=== PATIENT | female | born 1955 | race Hispanic/Latino ===

== ENCOUNTER 2019-06-02 05:10 | Observation (INO) | payer MEDICARE, OTHER ==
[2019-06-02] VITALS (7 sets, daily range): BP systolic 140–204; BP diastolic 63–91
[~2019-06-02] VITALS: Ht 152.4 cm; Wt 54.1 kg
--- OUTSIDE RECORDS SUMMARY | 2019-06-02 05:13 | XMS REPORT ---
[facility] Address Unknown Phone Unavailable Care Team Providers Care Auto Striper Name Role Phone Unavailable Unavailable Problems This patient has no known problems. Allergies, Adverse Reactions, Alerts This patient has no known allergies or adverse reactions. Medications This patient has no known medications. Encounters Start Date/Time End Date/Time Encounter Type Admission Type Attending [facility] Facility Care Department Encounter ID 2017-10-28 00:00:00 2017-10-28 00:00:00 Outpatient [facility] [id number] 2017-07-18 00:00:00 2017-07-18 00:00:00 Outpatient [facility] [id number] 2017-07-18 00:00:00 2017-07-18 00:00:00 Outpatient [facility] [id number] 2017-06-28 00:00:00 2017-06-28 00:00:00 Outpatient [facility] [id number] 2017-06-28 00:00:00 2017-06-28 00:00:00 Outpatient [facility] [id number] 2017-06-17 00:00:00 2017-06-17 00:00:00 Outpatient [facility] [id number] 2017-06-17 00:00:00 2017-06-17 00:00:00 Outpatient [facility] [id number] 2017-06-17 00:00:00 2017-06-17 00:00:00 Outpatient [facility] [id number] 2017-06-07 10:02:32 2017-06-07 10:02:32 Outpatient [facility] [id number] 2017-06-07 10:00:41 2017-06-07 10:00:41 Outpatient [facility] [id number] 2017-05-30 12:37:49 2017-05-30 12:37:49 Outpatient [facility] [id number] 2017-05-30 10:21:32 2017-05-30 10:21:32 Outpatient [facility] [id number] 2017-05-23 14:21:16 2017-05-23 14:21:16 Outpatient [facility] [id number] 2017-05-23 13:23:30 2017-05-23 13:23:30 Outpatient [facility] [id number] 2017-05-23 00:00:00 2017-05-23 00:00:00 Outpatient [facility] [id number] 2017-04-24 08:03:54 2017-04-24 08:03:54 Outpatient [facility] [id number] 2017-04-22 14:06:43 2017-04-22 14:06:43 Outpatient [facility] [id number] 2017-04-04 11:48:12 2017-04-04 11:48:12 Outpatient [facility] [id number] 2017-04-04 08:08:20 2017-04-04 08:08:20 Outpatient [facility] [id number] 2017-04-04 03:25:26 2017-04-04 03:25:26 Outpatient [facility] [id number] 2017-04-03 23:46:53 2017-04-03 23:46:53 Emergency [facility] [id number] 2017-04-02 08:32:43 2017-04-02 08:32:43 Outpatient [facility] [id number]
[2019-06-02 05:42] LABS: BASOPHILS % 0.5 % (0.0-1.0); EOSINOPHILS # (AUTO) 0.4 (0.0-0.4); EOSINOPHILS % 5.2 % (0.0-6.0); HEMATOCRIT 30.7 % (34.2-44.1); HEMOGLOBIN 10.1 g/dL (12.0-16.0); LYMPHOCYTES # (AUTO) 1.1 (1.0-3.2); MEAN CORPUSCULAR HEMOGLOBIN 29.9 pg (28-32); MEAN CORPUSCULAR HGB CONC 32.9 g/dL (31-35); MEAN CORPUSCULAR VOLUME 90.8 fL (81-99); MONOCYTES # (AUTO) 0.5 (0.2-0.8); MONOCYTES % 6.3 % (4.4-11.3); NEUTROPHILS # (AUTO) 5.3 (2.1-6.9); NEUTROPHILS % 72.9 % (38.7-80.0); PLATELET COUNT 137 x10e3/uL (140-360); RED BLOOD COUNT 3.38 x10e6/uL (3.6-5.1); RED CELL DISTRIBUTION WIDTH 16.1 % (11.7-14.4)
[2019-06-02 05:58] LABS: ALBUMIN 4.2 g/dL (3.5-5.0); ALBUMIN/GLOBULIN RATIO 1.2 (0.8-2.0); ANION GAP 19.9 mmol/L (8-16); CALCIUM 9.3 mg/dL (8.4-10.2); CREATININE, SERUM 11.02 mg/dL (0.57-1.11); POTASSIUM 4.9 mmol/L (3.5-5.1)
[2019-06-02] MEDS ORDERED: CARVEDILOL12.5 MG PO (06:45)
[2019-06-02] MEDS ORDERED: DEXTROSE 50% SYRINGE 50 ML IV PRN (06:45)
[2019-06-02] MEDS ORDERED: HYDRALAZINE HCL 20 MG/ML VIAL IV PRN (06:45)
[2019-06-02] MEDS ORDERED: NIFEDIPINE ER30 M1 PO (06:45)
[2019-06-02] MEDS ORDERED: DIALYVITE 8000.8 M1 PO (06:45)
[2019-06-02] MEDS ORDERED: ONDANSETRON HCL INJ 2MG/ML 2ML 2 MG/ML VIAL IV PRN (06:45)
[2019-06-02] MEDS ORDERED: ATORVASTATIN CA20 MG PO (06:45)
[2019-06-02] MEDS ORDERED: LEVEMIR100 UNIT/1 SQ (06:45)
--- NOTE | 2019-06-02 07:24 | Diagnostic Imaging Report ---
A single frontal view of the chest. HISTORY: Shortness of breath COMPARISON: None available. DISCUSSION: Portable technique, limits sensitivity of the exam. Overlying monitoring leads. Tubes/Lines: None Lungs and pleura: Low lung volumes result in bibasilar vascular crowding, accentuation of the pulmonary interstitial markings, central pulmonary vasculature, and the cardiac silhouette. Allowing for these limitations, the findings are as follows: Diffusely increased pulmonary interstitial markings with areas of more confluent patchy airspace opacities. Moderate right and small left pleural effusions with adjacent atelectasis. Heart and mediastinum: The cardiac silhouette and central pulmonary vasculature appear(s) partially obscured, but enlarged. Bones and soft tissues: Appear unremarkable, given this limited exam. IMPRESSION: Findings compatible with volume overload resulting in central pulmonary vascular congestion, moderate pulmonary edema, right greater than left pleural effusions with adjacent atelectasis. Signed by: Dr. Shashank Michaels D.O., M.M.M. on 06/02/2019 7:20 AM
[2019-06-02] MEDS: INSULIN REGULAR, HUMAN 100 UNIT/1 ML 3ML VIAL SQ SCH ×4 (08:39→21:16)
--- NOTE | 2019-06-02 08:57 | NUR ---
H&P cc: sob HPI: 64yoF, PCP , developed sob and fluid overload. PMH: ESRD on HD, HTN, HLD, DM2 PSHx: HD access Allergies; see emr FH/SH; no cigs; no illicits meds; see MAR ROS; no f/c/s/N/V/D/SEGOVIA/vision changes/skin changes/dizziness v/s revd PE: tired appearing anicteric ns1s2 reduced BS; crackles at bases soft nt no e/t skin dry flat affect a&ox3; arauz labs/med revd A/P: Pulmonary edema B/L pleural effusions DM2 ESRD on HD HLD HTN PLAN HD Lasix BID restart home meds scd dispo: re-eval after HD Joshua Kramer MD, PhD.
[2019-06-02 09:16] LABS: CHOL/HDL RATIO 1.9 (3.0-3.6)
[2019-06-02] MEDS ORDERED: LIDOCAINE HCL 2% JELLY 5 ML TUBE TOP ONE (09:45)
[2019-06-02] MEDS: FUROSEMIDE INJ 10 MG/ML 4 ML VIAL IV SCH ×2 (10:00→21:15)
[2019-06-02] MEDS: INSULIN GLARGINE 100 UNITS/ML VIAL SQ SCH (10:00)
[2019-06-02] MEDS ORDERED: SODIUM CHLORIDE 0.9% 1000ML 2,000 ML ONE (10:34)
[2019-06-02] MEDS: NIFEDIPINE CR 30 MG TAB PO SCH (12:53)
[2019-06-02] MEDS: CARVEDILOL 12.5 MG TAB PO SCH ×2 (12:54→17:00)
--- NOTE | 2019-06-02 14:50 | Consultation ---
DATE OF CONSULTATION: REASON FOR CONSULTATION: End-stage renal disease and volume overload. HISTORY OF PRESENT ILLNESS: The patient is a pleasant 64-year-old female with past medical history of ESRD on hemodialysis Saturday, , and Saturday; hypertension; diabetes type 2; and hyperlipidemia, who was admitted with shortness of breath. The patient went for dialysis on and missed on Saturday as she was out of town. The patient was supposed to go on Saturday to get a dialysis session but the dialysis center could not take her because there was staffing issue. She started getting more and more short of breath overnight and came to the emergency room. She was found to have pulmonary edema. Her oxygen saturation was 88% on room air. The patient denies having any cough or any fever. PAST MEDICAL HISTORY: As above. PAST SURGICAL HISTORY: AV fistula creation. ALLERGIES: PENICILLIN. MEDICATIONS: Insulin, hydralazine, nifedipine, carvedilol, and Lipitor. REVIEW OF SYSTEMS: GENERAL: No fatigue. No fever. No chills. HEENT: No headache or blurry vision. NECK: No dysphagia. CARDIOVASCULAR: No chest wall pain or orthopnea. RESPIRATORY: Positive shortness of breath. Positive dyspnea on exertion. No cough. No hemoptysis. GI: No nausea, vomiting, diarrhea, constipation, abdominal pain, hematemesis, or melena. MUSCULOSKELETAL: No ankle swelling. NEUROLOGIC: No numbness, weakness, or tingling. SKIN: No new rash. PHYSICAL EXAMINATION: VITAL SIGNS: Blood pressure 204/86, pulse of 65, respirations 22, temperature 96.9, and 91% on 4 L nasal cannula. GENERAL: Awake, alert, and oriented x3, not in apparent distress. HEENT: PERRLA. Extraocular movements intact. NECK: Positive for elevated JVD. HEART: S1 and S2. Regular rate and rhythm. LUNGS: Bilateral crackles. ABDOMEN: Soft. Bowel sounds positive. No organomegaly. EXTREMITIES: No edema. NEUROLOGIC: No focal deficits. SKIN: No new rash. LABORATORY DATA: White count 7.2, hemoglobin 10.1, and platelet count 137. Sodium 140, potassium 4.9, chloride 99, CO2 of 26, BUN 69, creatinine 11, and glucose 178. Hemoglobin A1c 5.6. Calcium is 9.3. AST 39 and ALT 41. BNP 4245. Albumin is 4.2. Chest x-ray bilateral pleural effusion, right greater than left and moderate pulmonary edema. ASSESSMENT AND PLAN: 1. End-stage renal disease with volume overload. We will do dialysis today and try to remove 2 to 3 L. The patient may need a session of ultrafiltration tomorrow prior to discharge. 2. Hypertension. Restart home medication and adjust the medicine after ultrafiltration today. 3. Anemia. Give the patient a dose of Epogen. 4. Diabetes type 2 per primary team. I want to thank, Dr. Kramer, for the consult. Discussed with the doctor at bedside. Fanny Barrett MD AFS/MODL /[id number]
--- NOTE | 2019-06-02 15:45 | NUR ---
Visit made by the Spiritual Care Department Pastoral Visitor, Olga Don. Pt sleeping soundly and no family present. Pastoral Visitor left a card describing availability of biomedical equipment support specialist and instructions on how to contact a biomedical equipment support specialist. SHANT FORD Clerk Spiritual Care Department O: [phone] Pager: [phone] ([phone] number calling from)
--- NOTE | 2019-06-02 17:08 | NUR ---
Nutrition Screen Note RD Recommendation for Physician: -Rec adding renal to current ADA diet Plan of Care: RD following, monitoring for tolerance and adequacy Nutrition reason for involvement: Diagnosis Primary Diagnose(s): End-stage renal disease with volume overload PMH: ESRD on HD, HTN, anemia, DM Ht: 60in Wt: 120lb BMI: 23.4kg/m2 IBW: 100lb +/- 10% RD Assessment: (06/02) Chart reviewed. Labs and meds reviewed. 64yo F, who was admitted for ESRD with volume overload. Pt missed HD over the weekend and became SOB. Pt received HD during my time of visit. Pt reported fair appetite. No GI complains reported. Pt denied any chewing or swallowing difficulty. Weight has fluctuated with dialysis treatment. Will continue to monitor and follow. Current Diet: ADA 1800 Malnutrition Evaluation (06/02/2019) The patient does not meet criteria for a specified degree of malnutrition at this time. Will re-evaluate at follow-up as appropriate. Diet Education Needs Assessment: Diet education not indicated. Followed by RD at [facility]. Pt was aware of diet restriction. No nutrition related question at this time. Nutrition Care Level: low Signed: Era Grande, MS, RD, LD
--- NOTE | 2019-06-02 19:08 | NUR ---
PT IS RESTING IN BED WITH FAMILY AT BEDSIDE. RESPIRATION IS EVEN AND UNLABORED, NO DISTRESS NOTED. BED IN THE LOWEST POSITION, LOCKED, AND CALL LIGHT WITHIN REACH. WILL CONTINUE TO MONITOR.
[2019-06-02] MEDS ORDERED: ATORVASTATIN 20 MG TAB PO SCH (21:00)
[2019-06-02] MEDS ORDERED: ATORVASTATIN 40 MG TAB PO SCH (21:00)
[2019-06-03] VITALS: BP 139/68
[2019-06-03 04:00] VITALS: BP 147/63
[2019-06-03 05:43] LABS: BASOPHILS % 0.3 % (0.0-1.0); EOSINOPHILS # (AUTO) 0.2 (0.0-0.4); EOSINOPHILS % 3.1 % (0.0-6.0); HEMATOCRIT 27.9 % (34.2-44.1); HEMOGLOBIN 8.8 g/dL (12.0-16.0); LYMPHOCYTES # (AUTO) 0.6 (1.0-3.2); MEAN CORPUSCULAR HEMOGLOBIN 28.9 pg (28-32); MEAN CORPUSCULAR HGB CONC 31.5 g/dL (31-35); MEAN CORPUSCULAR VOLUME 91.8 fL (81-99); MONOCYTES # (AUTO) 0.4 (0.2-0.8); MONOCYTES % 6.5 % (4.4-11.3); NEUTROPHILS # (AUTO) 4.7 (2.1-6.9); NEUTROPHILS % 79.8 % (38.7-80.0); PLATELET COUNT 116 x10e3/uL (140-360); RED BLOOD COUNT 3.04 x10e6/uL (3.6-5.1)
[2019-06-03 06:07] LABS: ALBUMIN 3.5 g/dL (3.5-5.0); ALBUMIN/GLOBULIN RATIO 1.1 (0.8-2.0); ANION GAP 16.3 mmol/L (8-16); CALCIUM 8.6 mg/dL (8.4-10.2); CREATININE, SERUM 7.35 mg/dL (0.57-1.11); POTASSIUM 4.3 mmol/L (3.5-5.1)
--- NOTE | 2019-06-03 06:22 | NUR ---
D/C summary Principal Dx: Pulmonary edema B/L pleural effusions Secondary Dx: DM2 ESRD on HD HLD HTN PLAN HD Lasix BID restart home meds scd dispo: re-eval after HD 06/03 Hba1c/LDL 5.04/15; rec'd dialysis; Home after HD. d/c home stable f/u pcp 1 week and nephrology for HD d/c>35mins Joshua Kramer MD, PhD.
--- NOTE | 2019-06-03 06:52 | NUR ---
Received patient lying in bed with eyes open. Respiration even and unlabored without SOB. Denies pain. Call light within reach.
[2019-06-03] MEDS ORDERED: INSULIN DETEMIR 20 UNIT SQ SCH (07:30)
[2019-06-03] MEDS: INSULIN REGULAR, HUMAN 100 UNIT/1 ML 3ML VIAL SQ SCH ×2 (07:30→11:17)
[2019-06-03 07:48] VITALS: BP 156/67
[2019-06-03] MEDS: INSULIN GLARGINE 100 UNITS/ML VIAL SQ SCH (08:47)
[2019-06-03] MEDS: NIFEDIPINE CR 30 MG TAB PO SCH (09:00)
[2019-06-03] MEDS: CARVEDILOL 12.5 MG TAB PO SCH (09:00)
[2019-06-03] MEDS: FUROSEMIDE INJ 10 MG/ML 4 ML VIAL IV SCH (09:00)
[2019-06-03 09:37] VITALS: BP 156/67
[2019-06-03 11:08] VITALS: BP 136/65
--- NOTE | 2019-06-03 14:00 | NUR ---
DIALYSIS FINISHED AT THIS TIME. 2L OUT.
[2019-06-03 16:15] VITALS: BP 138/68
--- NOTE | 2019-06-03 16:15 | NUR ---
Received discharge from MD. Patient is in stable condition. Dialysis finished as ordered. IV line to right AC D/Cd with tip intact. Pressure applied to site. No bleeding noted. Provided patient D/C teaching. Verbalized understanding. Discharge folder on hand. No new prescription. Personal items on hand. Accompanied to private auto via wheelchair by staff.
== END 2019-06-03 16:10 | disposition home or self-care (01) ==
LOC: ER 05:10 → ERHOLD 06:49 → MED/SURG3 09:06
PROVIDERS: ADMIT Internal Medicine; ATTEND Internal Medicine
DX: E87.70 Fluid overload, unspecified (principal); E11.22 Type 2 diabetes mellitus with diabetic chronic kidney disease; I12.0 Hypertensive chronic kidney disease with stage 5 chronic kidney disease or end stage renal disease; N18.6 End stage renal disease; Z99.2 Dependence on renal dialysis; Z83.3 Family history of diabetes mellitus; Z82.49 Family history of ischemic heart disease and other diseases of the circulatory system; R09.02 Hypoxemia; E78.5 Hyperlipidemia, unspecified; D63.1 Anemia in chronic kidney disease; J90 Pleural effusion, not elsewhere classified; Z79.4 Long term (current) use of insulin
CPT/HCPCS: 36415 ×2; 71045; 80053 ×2; 80061; 82550; 82553; 82948 ×2; 83036; 83880; 84484; 85025 ×2; 90935; 93005; 99284; G0378 ×2; J0360; J1815; J1817; J1940; J2001; J7030; 90962

== ENCOUNTER 2019-07-22 09:28 | Inpatient (IN) | payer MEDICARE ==
[~2019-07-22] VITALS: Ht 152.4 cm; Wt 47.7 kg
[~2019-07-22 09:28] MED LIST: ATORVASTATIN CA20 MG PO; CARVEDILOL12.5 MG PO; DIALYVITE 8000.8 M1 PO; LEVEMIR100 UNIT/1 SQ; NIFEDIPINE ER30 M1 PO
[2019-07-22] MEDS ORDERED: SODIUM CHLORIDE 0.9% 1000ML 500 ML IV STA (09:34)
[2019-07-22] MEDS ORDERED: DIATRIZOATE MEGL/DIATRIZOA SOD 30 ML BTL PO ONE (09:49)
[2019-07-22] MEDS ORDERED: ONDANSETRON HCL INJ 2MG/ML 2ML 2 MG/ML VIAL IV ONE (10:00)
[2019-07-22 12:00] LABS: BASOPHILS % 0.4 % (0.0-1.0); EOSINOPHILS # (AUTO) 0.1 (0.0-0.4); EOSINOPHILS % 1.1 % (0.0-6.0); HEMATOCRIT 35.8 % (34.2-44.1); HEMOGLOBIN 11.5 g/dL (12.0-16.0); LYMPHOCYTES # (AUTO) 0.7 (1.0-3.2); LYMPHOCYTES % 8.9 % (18.0-39.1); MEAN CORPUSCULAR HGB CONC 32.1 g/dL (31-35); MEAN CORPUSCULAR VOLUME 90.4 fL (81-99); MONOCYTES # (AUTO) 0.4 (0.2-0.8); MONOCYTES % 4.6 % (4.4-11.3); NEUTROPHILS # (AUTO) 6.4 (2.1-6.9); NEUTROPHILS % 84.7 % (38.7-80.0); PLATELET COUNT 146 x10e3/uL (140-360); RED BLOOD COUNT 3.96 x10e6/uL (3.6-5.1)
[2019-07-22 12:23] LABS: ALBUMIN/GLOBULIN RATIO 1.1 (0.8-2.0); ANION GAP 16.6 mmol/L (8-16); CALCIUM 9.6 mg/dL (8.4-10.2); CREATININE, SERUM 5.54 mg/dL (0.57-1.11); POTASSIUM 4.6 mmol/L (3.5-5.1)
[2019-07-22] MEDS ORDERED: HYDRALAZINE HCL 20 MG/ML VIAL IV ONE (12:30)
[2019-07-22] MEDS ORDERED: SODIUM CHLORIDE 0.9% 500ML 500 ML ONE (12:37)
--- NOTE | 2019-07-22 12:46 | Diagnostic Imaging Report ---
EXAM: CT Chest, Abdomen and Pelvis WITHOUT intravenous contrast INDICATION: Shortness of breath, hypoxia nausea, vomiting COMPARISON: Chest radiograph of 06/02/2019 TECHNIQUE: The chest, abdomen and pelvis were scanned utilizing a multidetector helical scanner from the thoracic inlet to the pubic symphysis without administration of IV contrast. Coronal and sagittal reformations were obtained. IV CONTRAST: None ORAL CONTRAST: Water COMPLICATIONS: None RADIATION DOSE: Total DLP: (DLP x 0.015 x size factor) mGy*cm Dose modulation, iterative reconstruction, and/or weight based adjustment of the mA/kV was utilized to reduce the radiation dose to as low as reasonably achievable. FINDINGS: LINES/ TUBES: None. LUNGS AND AIRWAYS: The central airways are patent. Multifocal bilateral lower lung predominant groundglass opacities and smooth interlobular septal thickening consistent with pulmonary edema. Bibasilar dependent subsegmental atelectasis. PLEURA: Moderate right pleural effusion. Small left pleural effusion. No pneumothorax. HEART AND MEDIASTINUM: The thyroid gland is normal. Numerous prominent subcentimeter supraclavicular, mediastinal, and axillary lymph nodes measuring up to 9 mm short axis do not meet size criteria for lymphadenopathy. Marked multichamber cardiomegaly. Diffuse atherosclerotic calcifications of the coronary arteries, thoracic aorta, and great vessels. Trace pericardial effusion. The main pulmonary artery is mildly enlarged up to 3.2 cm, which can be seen with pulmonary artery hypertension. HEPATOBILIARY: No focal hepatic lesions. No biliary ductal dilatation. The gallbladder appears unremarkable. SPLEEN: No splenomegaly. Calcification within the spleen is nonspecific and may be related to prior trauma or infection. PANCREAS: 7 mm (series 2 image 58) and 9 mm (series 2 image 61) cystic lesions in the body of the pancreas may represent a side branch intraductal papillary mucinous neoplasm. No ductal dilatation. ADRENALS: No adrenal nodules. KIDNEYS/URETERS: Nonobstructing 3 mm right midpole renal calculus. No hydronephrosis. No left-sided renal calculi. PELVIC ORGANS/BLADDER: Mural calcifications in the uterus. PERITONEUM / RETROPERITONEUM: No free air or fluid. LYMPH NODES: No lymphadenopathy. VESSELS: Diffuse atherosclerotic calcifications of the nonaneurysmal abdominal aorta and major branches. GI TRACT: Colonic diverticulosis with no CT evidence of diverticulitis. No abnormal bowel wall thickening. No bowel obstruction. BONES AND SOFT TISSUES: No acute osseous injury. No suspicious lytic or blastic lesions. Mild diffuse subcutaneous soft tissue edema. Tiny umbilical hernia containing fat. IMPRESSION: Cardiomegaly and severe pulmonary edema. Moderate right pleural effusion and small left pleural effusion. Numerous prominent subcentimeter supraclavicular, mediastinal and axillary lymph nodes do not meet size criteria for lymphadenopathy and may be reactive. Subcentimeter cystic lesions of the pancreas may represent side branch intraductal papillary mucinous neoplasms. Nonobstructing 3 mm right midpole renal calculus. No hydronephrosis. Diffuse atherosclerotic calcifications including of the coronary arteries. Signed by: John Lizarraga MD on 07/22/2019 12:43 PM
[2019-07-22] MEDS ORDERED: ONDANSETRON HCL INJ 2MG/ML 2ML 2 MG/ML VIAL IV PRN (13:15)
[2019-07-22] MEDS ORDERED: MORPHINE SULFATE INJ 4 MG/ML INJ 1ML IV PRN (13:15)
[2019-07-22] MEDS ORDERED: SODIUM CHLORIDE FLUSH 10 ML SYR INJ PRN (13:15)
--- NOTE | 2019-07-22 13:37 | NUR ---
travis at [facility] called for dialysis per dr concepcion's order
--- NOTE | 2019-07-22 13:54 | NUR ---
dr blackburn at bedside
--- NOTE | 2019-07-22 15:39 | NUR ---
DR BUENO AT PT BEDSIDE
--- NOTE | 2019-07-22 17:30 | NUR ---
dialysis nurse states pt is not critical and can wait till 2100 for dialysis states she will send her nurse to dialyze another pt and come back; dialysis nurse was questioned as to why that is and states again she is not critical and can wait; [id number] dr moreau calls rosie isabel about why pt is waiting to be dialyzed and was told what was said by the dialysis nurse dr moreau states she will get to the bottom of this
--- NOTE | 2019-07-22 17:31 | NUR ---
pt moved to room 2
--- NOTE | 2019-07-22 18:04 | NUR ---
DR DODSON AT PT BEDSIDE
--- NOTE | 2019-07-22 19:48 | NUR ---
CONTACTED ALYSON AT [facility] FOR UPDATE ON DYALSYSIS
[2019-07-22 21:00] VITALS: BP 188/98
--- NOTE | 2019-07-22 21:00 | NUR ---
patient arrived from ER. Patient alert and oriented x 4. patient is currently on 5 l nc, patient is sr.
[2019-07-22 22:01] VITALS: BP 188/78
--- NOTE | 2019-07-22 22:06 | NUR ---
pulmonary [id number] Thanks
[2019-07-22] MEDS ORDERED: HYDRALAZINE HCL 20 MG/ML VIAL IV PRN (22:15)
[2019-07-22] MEDS ORDERED: DEXTROSE 50% SYRINGE 50 ML IV PRN (22:15)
--- NOTE | 2019-07-23 | NUR ---
patient had dialysis completed and 2l was removed.
--- NOTE | 2019-07-23 01:08 | Consultation ---
DATE OF CONSULTATION: 07/22/2019 REASON FOR CONSULTATION: End-stage renal disease, volume overload. HISTORY OF PRESENT ILLNESS: The patient is a pleasant 64-year-old female with past medical history of ESRD, on hemodialysis Saturday, , and Saturday, last dialysis was yesterday; hypertension; diabetes type 2; and hyperlipidemia, who was admitted with worsening shortness of breath. According to the patient, she went for dialysis yesterday and only 1 L was removed. The patient started getting short of breath overnight, it has progressively worse and so she came to the emergency room. Had a CT of the chest done that showed pulmonary edema and bilateral pleural effusion more on the right than on the left. The patient was placed on BiPAP, currently on nasal cannula. PAST MEDICAL HISTORY: As above. PAST SURGICAL HISTORY: AV fistula creation. ALLERGIES: PENICILLIN. MEDICATIONS: Insulin, hydralazine, nifedipine, carvedilol, and Lipitor. REVIEW OF SYSTEMS: GENERAL: No fatigue, no fever, no chills. HEENT: No headache or blurry vision. NECK: No dysphagia. CARDIOVASCULAR: No chest pain, no PND. No orthopnea. RESPIRATORY: Positive shortness of breath. Positive dyspnea on exertion. No cough or hemoptysis. GI: No nausea, diarrhea, constipation, abdominal pain, hematemesis, or melena. MUSCULOSKELETAL: No ankle swelling. NEUROLOGIC: No numbness, weakness, or tingling. SKIN: No new rash. FAMILY HISTORY: No history of any kidney disease. PHYSICAL EXAMINATION: VITAL SIGNS: Blood pressure 183/72, pulse of 79, respirations 25, 96% on 2 L nasal cannula, and temperature 98.3. GENERAL: Awake and alert. Increased respiratory rate. HEART: S1 and S2. NECK: Positive engorged external jugular vein. LUNGS: Decreased breath sound at bases. ABDOMEN: Soft. Bowel sounds positive. EXTREMITIES: Positive edema. NEUROLOGIC: No focal deficit. LABORATORY DATA: White count 7.6, hemoglobin 11.5, and platelet count is 146. Sodium 139, potassium 4.6, chloride 100, CO2 of 27, BUN 28, creatinine 5.54, glucose is 163. BNP more than 5000. Albumin 4. CT of the chest. Cardiomegaly, severe pulmonary edema. Moderate right pleural effusion. Small left pleural effusion. Numerous prominent subcentimeter supraclavicular mediastinal axillary lymph nodes, do not meet criteria for lymphadenopathy and may be reactive. Nonobstructing 3 mm right midpole renal calculus. No hydrocephalus. Diffuse atherosclerotic changes. ASSESSMENT AND PLAN: 1. End-stage renal disease with gross volume overload. Dialysis called already for stat dialysis. UF as blood pressure tolerates today and dialysis again tomorrow. 2. Hypertension. Adjust medication after ultrafiltration today. 3. Anemia of chronic kidney disease. Start the patient on Epogen once blood pressure is better controlled. 4. Diabetes type 2 per primary team. Thank you Dr. Chand for the consult. Discussed with daughter at bedside. MD ELIANA Beard/MODL /[id number]
--- NOTE | 2019-07-23 05:09 | Consultation ---
DATE OF CONSULTATION: 07/22/2019 Pulmonary Medicine Consult REASON FOR REFERRAL: Respiratory failure. HISTORY OF PRESENT ILLNESS: Mrs. Gallegos is a pleasant 64-year-old female with acute respiratory failure. The patient presented to [facility] on July 22, 2019. The patient complained of shortness of breath. The patient is well known to be end-stage renal disease the patient. The patient claims she does not get full dialysis on many days. She states they only took out 1 L of fluid in the previous day, but she does not know why. The patient came to emergency room because of emerging shortness of breath. Blood pressure was 205/94, heart rate 70, pulse oximetry was 78% upon presentation. She was placed immediately on BiPAP for rescue. BNP level is greater than 5000. Chest x-ray consistent with pulmonary edema. The patient underwent a CT chest, which demonstrated severe pulmonary edema and [id number] right-sided pleural effusion and small to moderate left pleural effusion, pulmonary artery main trunk 3.2 cm. The patient was admitted, I was consulted. PAST MEDICAL HISTORY: Hypertension, diabetes, hyperlipidemia, and end-stage renal disease on dialysis Saturday, , and Saturday. PAST SURGICAL HISTORY: AV fistula creation. MEDICATIONS: List reviewed per the chart record. ALLERGIES: PENICILLINS. SOCIAL HISTORY: No smoking, no drinking, no drugs. FAMILY HISTORY: Noncontributory to this condition. REVIEW OF SYSTEMS: Cannot get reliably as the patient is on respiratory support devices. PHYSICAL EXAMINATION: VITAL SIGNS: Afebrile, vital signs noted reviewed per the chart record. Blood pressure is slowly improving, compared to previous is still high. GENERAL: Mild tachypnea on respiratory assist device by full face mask interface. HEENT: Normocephalic and atraumatic. NECK: Supple. Throat midline. LUNGS: Bilateral air entry, decreased breath sounds, few rales slightly. CARDIOVASCULAR: S1 and S2. No murmurs, rubs, or gallops. ABDOMEN: Soft and nontender. EXTREMITIES: No clubbing. No cyanosis. There is no edema. INTEGUMENT: No rash or purpura. LABORATORY DATA: Potassium 4.6, BUN 28, and creatinine 5.5. LFTs mostly unremarkable. Globulin 3.7, albumin 4.0. Lipase 67. White count 8, hematocrit 36, and platelets 146. Radiography as described. Additionally, there was an abdominal pelvic CT with subcentimeter cystic lesion, pancreas, additional nonobstructing 3 mm right mid pole renal calculus. IMPRESSION AND PLAN: 1. Acute respiratory failure, BiPAP salvage. 2. Pulmonary edema. 3. Pleural effusions, right greater than left. 4. End-stage renal disease, on hemodialysis. 5. Abnormal pancreatic radiography, cystic nonspecific lesions. 6. Pulmonary hypertension, likely venous line. 7. Hypertension. 8. Diabetes. 9. Hyperlipidemia. 10. Dialysis is likely today. Nephrology consult. Wean off BiPAP as tolerated. Control blood pressure. The patient should continue appropriate followup of these pancreatic nodules per designated. Reasonable to hold off antibiotics given likelihood of sepsis seems lower. 11. Bronchodilators p.r.n. We will follow up closely. Thank you very much, Dr. Chand, for this consult. Please call for questions. MD KAYLEE Chao/LIZETH /[id number]
[2019-07-23 05:31] LABS: INR 1.13
[2019-07-23 05:32] LABS: PARTIAL THROMBOPLASTIN TIME 35.5 seconds (23.8-35.5)
--- NOTE | 2019-07-23 07:00 | NUR ---
Walking rounds done. Patient is declining Thoracentesis at this time. Dr. Valentino called, notified and IR consult was cancelled at this time.Diet restarted. POC discussed with patient, plan is for dialysis today again. Call vizcarra within reach. Patient instructed to call for assistance as needed and verbalized understanding.
[2019-07-23 07:30] VITALS: BP 156/58
[2019-07-23] MEDS: INSULIN LISPRO 100 UNIT/1 ML 3ML VIAL SQ SCH ×4 (07:30→21:00)
[2019-07-23] MEDS: NIFEDIPINE CR 30 MG TAB PO SCH ×2 (08:17→09:00)
[2019-07-23] MEDS: FOLIC ACID/CYANOCOB/PYRIDOXINE TAB PO SCH (08:17)
[2019-07-23] MEDS: CARVEDILOL 12.5 MG TAB PO SCH ×3 (08:17→17:00)
--- NOTE | 2019-07-23 08:50 | Diagnostic Imaging Report ---
Chest, 1 view, 07/23/2019. History: Shortness of breath. Comparison: 06/02/2019. Findings: The cardiomediastinal silhouette and pulmonary vasculature are within prominent with diffuse hazy bilateral pulmonary opacities which obscure both hemidiaphragms. There are no acute osseous or soft tissue abnormalities. Impression: CHF with bibasilar atelectasis and effusions, slightly worsened compared to prior exam. Signed by: Manuel Hanks on 07/23/2019 8:46 AM
--- NOTE | 2019-07-23 09:19 | NUR ---
Dialysis nurse rounding. Per MAJOR Wittyam curer nurse patient will have dialysis today around 1600. She received orders from Dr. Sutton. Patient may have AM BP medications this morning
--- NOTE | 2019-07-23 09:30 | NUR ---
Dr. Chand at the bedside rounding. No new orders at this time.
[2019-07-23] MEDS ORDERED: SODIUM CHLORIDE 0.9% 250ML 500 ML IV PRN (09:45)
[2019-07-23] MEDS ORDERED: MANNITOL 25% 12.5GM/50 ML VIAL IV PRN (09:45)
[2019-07-23] MEDS ORDERED: ALBUMIN 25% 12.5GM 0.25 GM/ML BTL IV PRN (09:45)
[2019-07-23] MEDS ORDERED: ONDANSETRON HCL 4 MG ORAL DISINTEGRATING TAB PO PRN (10:15)
[2019-07-23] MEDS: ASPIRIN 81 MG ENTERIC COATED PO SCH (11:15)
[2019-07-23] MEDS: CLOPIDOGREL BISULFATE 75 MG TAB PO SCH (11:15)
[2019-07-23 12:00] VITALS: BP 155/82
--- NOTE | 2019-07-23 12:55 | NUR ---
Rcvd patient in report at this time. patient is resting in bed. Family at bedside. No s/s of distress noted
--- NOTE | 2019-07-23 13:35 | History and Physical ---
CHIEF COMPLAINT: Shortness of breath. HISTORY OF PRESENT ILLNESS: This is a 64-year-old female, who has a history of ESRD on dialysis, hypertension, type 2 diabetes, and hyperlipidemia, who presented to the emergency room yesterday with complaints of shortness of breath that began overnight prior to arrival to the hospital. While here, the patient was on BiPAP, found to have imaging studies consistent with pulmonary edema, requiring urgent hemodialysis. The patient received hemodialysis and Pulmonary was consulted. The patient was seen and evaluated at bedside on the medical floor. She reports she was doing well with no other issues at this time. She reports she is very compliant with her dialysis. Denies any increased fluid intake or salt intake at home. Unsure if she is getting enough ultrafiltration during dialysis. No reports of any chest pain, palpitation, nausea, or vomiting. The patient is currently doing well at bedside when I examined her and interviewed her with the nurse present throughout the entire conversation. REVIEW OF SYSTEMS: Pertinent positives: Shortness of breath. Pertinent negatives: Denies any chest pain, palpitation, nausea, vomiting, diarrhea, dysuria, hematuria, frequency, urgency, lightheadedness, dizziness, abdominal pain, headaches, cough, congestion, fever, or any other complaints. The rest of the 14-point review of system are reviewed with the patient and are negative. ALLERGIES: PENICILLINS. HOME MEDICATIONS: 1. Lipitor 40 mg at bedtime. 2. Coreg 25 mg p.o. b.i.d. 3. Dialyvite 800 mg daily. 4. Nifedipine XL 90 mg daily. PAST MEDICAL HISTORY: ESRD on dialysis, hypertension, type 2 diabetes. PAST SURGICAL HISTORY: Thoracentesis in the past, AV fistula creations. FAMILY HISTORY: Hypertension and diabetes. SOCIAL HISTORY: No drugs. No alcohol. Does not smoke. Good social support. PHYSICAL EXAMINATION: VITAL SIGNS: Temperature is 98.5, pulse 73, respiratory rate is 20, blood pressure 156/58, and pulse ox 97% on 10 L nasal cannula. GENERAL: Not in acute distress. Alert and oriented x3. Cooperative on examination. HEENT: Head; normocephalic, atraumatic. Eyes; pupils are equal, round, and reactive to light bilaterally. Extraocular movements intact bilaterally. Throat; no evidence of erythema or exudates in the posterior pharynx. Has poor dentition. NECK: Supple. Good range of motion. PULMONARY: She has positive rales, positive crackles. She is on nasal cannula 10 L. CARDIOVASCULAR: Positive S1 and S2. No murmurs, rubs, or gallops appreciated. ABDOMEN: Soft, nondistended, and nontender to palpation. Bowel sounds present. MUSCULOSKELETAL: Strength is 5/5 throughout. No evidence of any muscle deficits on examination. No weakness appreciated. NEUROLOGIC: Cranial nerve II through XII grossly intact. No evidence of any neurological deficits on exam. SKIN: Intact. Warm to touch. Good cap refill. PSYCHIATRIC: Normal affect and mood. EXTREMITIES: No edema. Good range of motion throughout. LABORATORY FINDINGS: Show white count is 7.6, hemoglobin 11.5, hematocrit is 35, and platelets of 146. Coagulation; PT 15, INR 1.1, PTT 35. Chemistry; sodium 139, potassium 4.6, chloride 100, bicarb 27, anion gap of 16, BUN is 28, creatinine 5.5, glucose 163, calcium 9.6. Total bilirubin was 1.1, AST 39, ALT 41, alkaline phosphatase was 81. BNP greater than 5000. Total protein 7.7, albumin 4, lipase is 57. MICROBIOLOGY: None. IMAGING STUDIES: CT abdomen and pelvis shows cardiomegaly with severe pulmonary edema, moderate right pleural effusion and small left pleural effusion. Numerous prominent subcentimeter subclavicular mediastinal axillary lymph nodes, do not meet criteria for lymphadenopathy, but may be reactive. There is subcentimeter cystic lesions of the pancreas, noted side-branch intraductal papillary mucinous neoplasms. There is a nonobstructing 3 mm right mid pole right calculus. No hydronephrosis. Diffuse atherosclerotic calcifications clearly in the coronary arteries. Chest x-ray, CHF with bibasilar atelectasis and effusions slightly worsening compared to prior examination. IMPRESSION: 1. Respiratory distress with underlying pulmonary edema with volume overload. 2. Unknown history of congestive heart failure. 3. End-stage renal disease, on dialysis with volume overload. 4. Hypertension. 5. Type 2 diabetes. 6. Lymphadenopathy, unknown etiology. 7. Pancreatic cysts. PLAN: At this time, Pulmonary was consulted. Scheduled for thoracentesis later today. She did receive hemodialysis yesterday and is scheduled for hemodialysis today by Nephrology for increased ultrafiltration. I will go ahead and get a Cardiology consultation. Get a 2D echo because her BNP is greater than 5000. I do not know if she has a history of heart failure in the past. In relation to her dialysis, Nephrology has been consulted and will manage accordingly. Her blood pressure, we will resume same home antihypertensive medications, put her on p.r.n. hydralazine. As for her diabetes, we will put her on insulin sliding scale, get an A1c. As for the lymph nodes seen on the imaging studies, I will go ahead and get a engineering laboratory technician, so they can follow up as an outpatient in his office just to make sure that this is cleared up. I did discuss this with the patient. As for her CT imaging, there are some concerns of some pancreatic cyst of unknown etiology. We will go ahead and get a GI consultation to help assess with this and possibly follow up as an outpatient as well. Otherwise, she will be on heparin for DVT prophylaxis. We will get PT and OT evaluation. Follow with the consultants, Hematology, GI, Cardiopulmonary, and Nephrology. I discussed the plan of care with the patient at bedside including the nursing staff present. MD PRATIK Madden/LIZETH /[id number]
[2019-07-23] MEDS ORDERED: ACETAMINOPHEN 325 MG TAB PO PRN (14:15)
[2019-07-23 16:37] VITALS: BP 134/58
--- NOTE | 2019-07-23 17:07 | Consultation ---
DATE OF CONSULTATION: 07/23/2019 Cardiac Consultation REASON FOR EVALUATION: Congestive heart failure. HISTORY OF PRESENT ILLNESS: A 64-year-old lady, who is known with end-stage renal disease, on dialysis for the last 2 years. She is diabetic of many years' duration of more than 30 years. The patient is relatively active. She is also hypertensive. She claimed they do not take enough fluid from her. She came to this institution with impending respiratory failure with orthopnea, paroxysmal nocturnal dyspnea, cough, and pulmonary edema. Her BNP was greater than 5000. Her chest x-ray consistent with volume overload. Her CT chest showed pulmonary edema and pleural effusion. The patient had dialysis and she feels better after dialysis. She is still on oxygen. REVIEW OF SYSTEMS: Done to all systems and will be summarized for clarity. GENERAL: No fever. No chills. No weight loss. No weight gain. HEENT: Repeated congestion. PULMONARY AND CARDIAC: Repeated volume overload symptoms between dialysis. The patient with activity, she does have shortness of breath and easy fatigability. There is no orthopnea. No paroxysmal nocturnal dyspnea. GI: Bloating and indigestion at times. : She does not make urine, but every now and then she feels fullness in her lower abdomen with urgency. MUSCULOSKELETAL: No back pain. No knee pain. NEUROLOGICAL: Tingling and numbness of the feet, but no seizure, no localized deficit. HEMATOLOGY: Easy bruising, but no bleeding. ENDOCRINE: The patient is a diabetic. SOCIAL HISTORY: She is divorcee. She is nonsmoker and non-alcohol drinker. She lives by herself with excellent family support. HOME MEDICATIONS: Include Lipitor 20 mg a day, Coreg 25 mg twice a day, nifedipine 30 mg a day, and insulin. ALLERGIES: PENICILLIN. PAST MEDICAL HISTORY: 1. Diabetes mellitus with end-organ damage of many years' duration. 2. Hypertension. 3. End-stage renal disease, on dialysis. 4. Left arm AV fistula surgery. 5. Hyperlipidemia. FAMILY HISTORY: Father at age 82. He was also on dialysis. Mother at age 62 with diabetes mellitus, peripheral arterial vascular disease, amputation, coronary artery disease, and sudden cardiac . Three brothers, one brother had kidney cancer and CVA, but he is alive. Four sisters, she lost a sister to cancer questionable primary. She is also diabetic. Another sister is survival of breast cancer. She does have 5 children, 2 sons and 3 daughters, they are all healthy. PHYSICAL EXAMINATION: VITAL SIGNS: Height 5 feet, weight of 119 pounds, blood pressure 150/80, heart rate of 70, respiratory rate of 18, and temperature of 97 Fahrenheit. HEENT: Pupils are reactive. NECK: No elevation of jugular venous pulsation. No bruit. CHEST: Crackles, more noted in the bases with decreased lung expansion. HEART: PMI 5th left intercostal space. Normal first and second heart sounds. No rub. ABDOMEN: Soft with good bowel sounds. EXTREMITIES: No cyanosis. No clubbing. No edema. No feet pulses. NEUROLOGIC: Awake, alert, and oriented. No motor or sensory deficits. LABORATORY DATA: Sodium of 139, potassium of 4.6, BUN 28, creatinine of 5.5, and CO2 of 27. White blood cell count of 7.6, hemoglobin of 11.5, hematocrit 36%, and platelet count of 146,000. EKG showing normal sinus rhythm, left atrial enlargement, cannot rule out anterior wall myocardial infarction. Chest x-ray showing volume overload and cardiomegaly, and pleural effusion. CT abdomen, there is questionable lesions in the pancreas and right renal stone and atherosclerosis of the aorta. IMPRESSION AND PLAN: 1. Volume overload and respiratory failure. BiPAP salvage and dialysis with improvement. The patient to have more dialysis. 2. Pulmonary edema. 3. Pleural effusion. 4. End-stage renal disease, on hemodialysis. 5. Possible pulmonary hypertension as evidenced by CT scan showing enlargement of the pulmonary artery. 6. Hypertension. 7. Diabetes mellitus with end-organ damage. 8. Hyperlipidemia. 9. Abnormal finding on the pancreas. 10. Nonobstructing kidney stone. 11. Very very and very high probability of significant severe coronary artery disease and possible her volume overload and pulmonary edema not because enough removal of fluid, but probably it is the ventricle secondary to ischemia and hypertension playing roles back to back. We will review her echocardiogram. We will review her test. We will continue Coreg. We will add aspirin and Plavix after thoracentesis. We will continue her Lipitor. Adding ANNMARIE inhibitor will be beneficial to her medical regimen in addition to her nifedipine. Differential diagnoses are discussed. The patient currently to have thoracentesis and GI workup, which I will clear her for those procedure. I gave her my card. She needs to follow up in our office for further cardiac workup. All this discussed and explained to the patient and her daughters. MD SHANIA Ames/LIZETH /[id number]
[2019-07-23] MEDS ORDERED: SODIUM CHLORIDE 0.9% 1000ML 2,000 ML ONE (17:09)
--- NOTE | 2019-07-23 18:13 | NUR ---
Patient to transfer to room 298. Report given to Ivette. Patient made aware of transfer Addendum: 07/23/19 at 1814 by Vi Moss RN wrong patient
--- NOTE | 2019-07-23 18:53 | NUR ---
Temp noted at 97.9 at this time.
[2019-07-23] MEDS ORDERED: VANCOMYCIN 1GM/NS 250 ML 250 ML IV ONE (19:30)
[2019-07-23] MEDS ORDERED: CEFEPIME HCL 1 GM VIAL IV SCH (20:00)
[2019-07-23 20:15] VITALS: BP 104/56
--- NOTE | 2019-07-23 20:19 | NUR ---
Pulmonary Medicine Date: 07/23/2019 SUBJECTIVE: BETTER after HD yesterday Today on oxygen by NC, 4 L/min flow she ate well initially she deferred thoracentesis, but now she agrees BP safer REVIEW OF SYSTEMS: no headaches, no rash PHYSICAL EXAMINATION: VITAL SIGNS: Afebrile, vital signs noted and reviewed per the chart record. GENERAL: Calm, NAD HEENT: Normocephalic and atraumatic. NECK: Supple. Throat midline. LUNGS: Bilateral air entry, decreased breath sounds at bases, limited but clear CARDIOVASCULAR: S1 and S2. No murmurs, rubs, or gallops. ABDOMEN: Soft and nontender. EXTREMITIES: No clubbing. No cyanosis. no edema. INTEGUMENT: No rash or purpura. LABORATORY DATA: per EMR IMPRESSION AND PLAN: 1. Acute respiratory failure, BiPAP salvage / bipap off. 2. Pulmonary edema. 3. Pleural effusions, right greater than left. 4. End-stage renal disease, on hemodialysis. 5. Abnormal pancreatic radiography, cystic nonspecific lesions. 6. Pulmonary hypertension, likely venous line. 7. Hypertension. 8. Diabetes. 9. Hyperlipidemia. Repeat Dialysis is likely today. Appreciate nephrology evaluation d/c BiPAP wean oxygen as feasible thoracenteesis tomorrow gi evaluation of the pancreatic nodules Reasonable to hold off antibiotics given likelihood of sepsis seems lower. Bronchodilators p.r.n. Thank you very much, Dr. Chand, for this consult. Please call for questions.
[2019-07-23] MEDS: HEPARIN SOD (PORCINE) 5,000 UNIT/ML VIAL SC SCH (21:00)
[2019-07-23] MEDS: ATORVASTATIN 20 MG TAB PO SCH (21:15)
[2019-07-23] MEDS: CEFEPIME 1GM/NS 0.9% 50 ML 50 ML IV SCH (21:15)
[2019-07-23 23:43] VITALS: BP 110/57
[2019-07-24] VITALS (10 sets, daily range): BP systolic 110–153; BP diastolic 49–67
[2019-07-24 05:37] LABS: BASOPHILS # (AUTO) 0.1 (0.0-0.1); BASOPHILS % 0.6 % (0.0-1.0); EOSINOPHILS # (AUTO) 0.2 (0.0-0.4); EOSINOPHILS % 2.3 % (0.0-6.0); HEMATOCRIT 33.5 % (34.2-44.1); HEMOGLOBIN 10.5 g/dL (12.0-16.0); LYMPHOCYTES # (AUTO) 0.8 (1.0-3.2); LYMPHOCYTES % 10.6 % (18.0-39.1); MEAN CORPUSCULAR HEMOGLOBIN 28.5 pg (28-32); MEAN CORPUSCULAR HGB CONC 31.3 g/dL (31-35); MONOCYTES # (AUTO) 0.6 (0.2-0.8); MONOCYTES % 7.4 % (4.4-11.3); NEUTROPHILS # (AUTO) 6.2 (2.1-6.9); NEUTROPHILS % 78.8 % (38.7-80.0); PLATELET COUNT 124 x10e3/uL (140-360); RED BLOOD COUNT 3.68 x10e6/uL (3.6-5.1)
[2019-07-24 06:07] LABS: ALBUMIN 3.5 g/dL (3.5-5.0); ALBUMIN/GLOBULIN RATIO 0.9 (0.8-2.0); ANION GAP 13.7 mmol/L (8-16); CALCIUM 9.4 mg/dL (8.4-10.2); CHOL/HDL RATIO 2.3 (3.0-3.6); CREATININE, SERUM 3.48 mg/dL (0.57-1.11); POTASSIUM 3.7 mmol/L (3.5-5.1)
[2019-07-24 06:27] LABS: THYROID STIMULATING HORMONE 1.854 uIU/mL (0.350-4.940)
--- NOTE | 2019-07-24 07:19 | NUR ---
Pt accidentally removed IV in the shower. Site wrapped with gauze and coband.
[2019-07-24] MEDS: INSULIN LISPRO 100 UNIT/1 ML 3ML VIAL SQ SCH ×4 (07:25→20:36)
[2019-07-24] MEDS: FOLIC ACID/CYANOCOB/PYRIDOXINE TAB PO SCH (09:00)
[2019-07-24] MEDS: ASPIRIN 81 MG ENTERIC COATED PO SCH (09:00)
[2019-07-24] MEDS: CLOPIDOGREL BISULFATE 75 MG TAB PO SCH (09:00)
[2019-07-24] MEDS: NIFEDIPINE CR 30 MG TAB PO SCH (09:00)
[2019-07-24] MEDS: CARVEDILOL 12.5 MG TAB PO SCH ×2 (09:00→17:02)
[2019-07-24] MEDS: HEPARIN SOD (PORCINE) 5,000 UNIT/ML VIAL SC SCH ×2 (09:00→20:42)
[2019-07-24 09:18] LABS: PLATELET ESTIMATE SLIGHTLY DECREASED; PLATELET MORPHOLOGY COMMENT RARE EDTA CLUMPING; RBC MORPHOLOGY COMMENT NORMAL
--- NOTE | 2019-07-24 09:31 | NUR ---
Nutrition Screen Note RD Recommendation for Physician: -ADAT to renal, ADA 1800 per MD. Plan of Care: RD following, monitoring for tolerance and adequacy. Nepro once per day. Education provided. Nutrition reason for involvement: Diagnosis-ESRD Primary Diagnose(s): ESRD, pulmonary edema, diarrheal illness PMH: CHF, ESRD on dialysis, HTN, T2DM Ht: 60 in Wt: 105 lb BMI: 20.5 kg/m2 IBW: [address] Assessment: 07/24: 64 YOF admitted for ESRD, pulmonary edema, diarrheal illness. Pt reports thats she had a poor appetite for about 1-2 days prior to admission but her weight and appetite have been stable at home before that. Pt stated she had no N/V/chewing or swallowing issues as well as any food allergies. Pt reported she has been on dialysis for a long time, pt accepted education on the renal diet and accepted handout. Pt was open to trying a Nepro supplement. Pt had dialysis yesterday plan for it again today and thoracentesis. Pt is currently NPO. Nephrology and GI have been consulted as well. LBM: not recorded. Chart reviewed. Will continue to monitor. Current Diet: NPO Malnutrition Evaluation (07/24) The patient does not meet criteria for a specified degree of malnutrition at this time. Will re-evaluate at follow-up as appropriate. Diet Education Needs Assessment: Diet education indicated, pt accepted. Learner(s): pt Barriers: none Cultural/Language Modifications: none Readiness: acceptance Method: discussion, handout, teach back Topics: Renal diet Understanding/Compliance: verbalized understanding, anticipate good compliance Nutrition Care Level: low Signed: Risa Wright RD, LD Addendum: 07/24/19 at 0936 by Risa Wright DIET Per pt and last RD note- pt's weight fluctuates.
[2019-07-24] MEDS ORDERED: SODIUM CHLORIDE 0.9% 1000ML 2,000 ML IV PRN (10:00)
--- NOTE | 2019-07-24 11:51 | Diagnostic Imaging Report ---
EXAMINATION: CHEST SINGLE (PORTABLE) INDICATION: Postoperative COMPARISON: Chest radiograph of 07/23/2019 FINDINGS: LINES/TUBES:EKG leads overlie the chest. LUNGS:The lungs are moderately inflated. No focal consolidation or pulmonary edema. PLEURA:Interval resolution of bilateral pleural effusions. No pneumothorax. MEDIASTINUM:Mild cardiomegaly. Atherosclerotic calcifications of the thoracic aorta. BONES/SOFT TISSUES:No acute osseous injury. ABDOMEN:No free air under the diaphragm. IMPRESSION: No pneumothorax status post right thoracentesis. Interval resolution of bilateral pleural effusions. No focal pneumonia or pulmonary edema. Signed by: John Lizarraga MD on 07/24/2019 11:47 AM
--- NOTE | 2019-07-24 11:52 | Diagnostic Imaging Report ---
PROCEDURE: Ultrasound-guided therapeutic thoracentesis Procedural Personnel Attending physician(s): John Lizarraga MD Fellow physician(s): None Resident physician(s): None Advanced practice provider(s): None Pre-procedure diagnosis: Pleural effusion, shortness of breath Post-procedure diagnosis: Same Indication: Pleural effusion with compromised respiration Additional clinical history: None Complications: No immediate complications. IMPRESSION: Ultrasound-guided thoracentesis with drainage of 500 mL of serous fluid. Plan: Postprocedural chest radiograph. Resume care by clinical team. PROCEDURE SUMMARY: - Limited thoracic ultrasound - Ultrasound-guided thoracentesis - Additional procedure(s): None PROCEDURE DETAILS: Pre-procedure Consent: Informed consent for the procedure including risks, benefits and alternatives was obtained and time-out was performed prior to the procedure. Preparation: The site was prepared and draped using maximal sterile barrier technique including cutaneous antisepsis. Anesthesia/sedation Level of anesthesia/sedation: No sedation Anesthesia/sedation administered by: Not applicable Limited thoracic ultrasound Limited thoracic ultrasound was performed using a curved transducer. A safe window for thoracentesis was identified. Left hemithorax findings: Trace pleural effusion. Right hemithorax findings: Moderate pleural effusion Thoracentesis Local anesthesia was administered. The pleural space was accessed under real-time ultrasound guidance and fluid return confirmed position. The fluid was drained. The catheter was removed, and a sterile bandage was applied. Catheter placed: 5F Clyde Post-drainage hemithorax findings: No visible pleural effusion Additional Details Additional description of procedure: None Equipment details: None Specimens removed: Pleural fluid Estimated blood loss (mL): Less than 10 Standardized report: [id number] Attestation Signer name: John Lizarraga MD I attest that I was present for the entire procedure. I reviewed the stored images and agree with the report as written. Signed by: John Lizarraga MD on 07/24/2019 11:48 AM
--- NOTE | 2019-07-24 12:51 | Progress Note ---
DATE: 07/24/2019 Medicine Progress Note SUBJECTIVE: The patient is doing much better today. She refuses a central line placement. This is documented now in the chart. Nurse also tried to convince the patient in which she refused. We are going to work on a peripheral IV now. She did have a low-grade temperature yesterday of 100.2, but no fever thereafter. She was complaining of some ear pain. PHYSICAL EXAMINATION: VITAL SIGNS: Temperature 98, pulse 71, respiratory rate 19, blood pressure 137/59, pulse ox is 98%, she is on 4 L nasal cannula. GENERAL: Not in acute distress. Alert and oriented x3. Cooperative on examination. HEENT: Head; normocephalic, atraumatic. Eyes; pupils are equal, round, and reactive to light bilaterally. Extraocular movements intact bilaterally. NECK: Supple. Good range of motion. Throat; no evidence of erythema or exudates in the posterior pharynx. Has poor dentition. PULMONARY: Clear to auscultation bilaterally. No wheezing, rales, or rhonchi. No crackles appreciated. CARDIOVASCULAR: Positive S1, S2. No murmurs, rubs, or gallops. ABDOMEN: Soft, nondistended, and nontender to palpation. Bowel sounds present. MUSCULOSKELETAL: Strength is 5/5 throughout. No evidence of any muscle deficits on examination. No weakness appreciated. NEUROLOGIC: Cranial nerve II through XII grossly intact. No evidence of any neurological deficits on exam. SKIN: Intact. Warm to touch. Good cap refill. PSYCHIATRIC: Normal affect and mood. EXTREMITIES: No edema. Good range of motion throughout. LAB FINDINGS: Show white count 7.9, hemoglobin 10.5, hematocrit 33.5, platelets of 124. Coagulation; PT 15, INR 1.1, PTT 35. Chemistry; sodium 137, potassium 3.7, chloride 99, bicarb 20, anion gap of 13, BUN is 15, creatinine is 3.4, glucose is 106. LFTs within normal range. Albumin was 3.5, LDL was 45, TSH is 1.8, hemoglobin A1c was 5.1. MICROBIOLOGY: Blood cultures are pending. IMAGING STUDIES: Chest x-ray from yesterday shows CHF with bibasilar atelectasis and effusion, slightly worse compared to prior exam. IMPRESSION: 1. Respiratory distress with underlying pulmonary edema and volume overload. 2. Concerns for underlying CHF. 3. End-stage renal disease, on hemodialysis with volume overload. 4. Hypertension. 5. Type 2 diabetes. 6. Lymphadenopathy, unknown etiology. 7. Pancreatic cyst. PLAN: At this time, she continues to be on nasal cannula 5 L, which we are going to try to wean it off. She is scheduled for thoracentesis today. The patient refuses central line placement. We will try to get a peripheral line in the patient. She did have a low-grade temperature yesterday less likely to be of any kind of infectious etiology where she was started on antibiotics. Pulmonary is following in terms of the respiratory status flannery. Cardiology was consulted and recommended outpatient followup in his office. The patient received dialysis yesterday. Blood pressure was controlled. In relation to her diabetes, her A1c is 5.1. She does not need any kind of insulin therapy for home. As for her lymphadenopathy and pancreatic cyst, I discussed this case with Hematology/Oncology, he recommends outpatient PET-CT at a later date. I also read GI noted in terms she may need an MRCP and close followup as an outpatient, but Hematology states that the PET-CT will also light up the pancreatic lesions and also the lymph nodes there to further delineate. At this time, once the blood cultures are negative and she is off oxygen she can be potentially discharged, likely will occur possibly tomorrow. I discussed the plan of care with the patient and family at bedside including nursing staff. MD PRATIK Madden/LIZETH /[id number]
--- NOTE | 2019-07-24 16:42 | Consultation ---
DATE OF CONSULTATION: 07/23/2019 Hematology and Oncology. REQUESTING PHYSICIAN: Janny Chand MD. REASON FOR CONSULTATION: Evaluation and management of the patient with unexplained lymphadenopathy and anemia. HISTORY OF PRESENT ILLNESS: Ms. Gallegos is a very pleasant 64-year-old female with multiple medical problems including known history of hypertension, hyperlipidemia, type 2 diabetes mellitus, and end-stage renal disease on hemodialysis, admitted to the Emergency Department due to progressive shortness of breath. She underwent workup revealing pulmonary edema and volume overload requiring urgent hemodialysis. She underwent also CT scan of the abdomen and pelvis revealing numerous prominent subcentimeter subclavicular mediastinal and axillary lymph nodes. Subsequently, Hematology-Oncology has been consulted to assist with the management. Presently, the patient is lying comfortably, not in acute distress, breathing much better. She is going to have thoracocentesis tomorrow. Family is at bedside. PAST MEDICAL HISTORY: 1. Hypertension. 2. Hyperlipidemia. 3. Diverticulitis. 4. End-stage renal disease on hemodialysis. PAST SURGICAL HISTORY: 1. Thoracocentesis in the past. 2. AV fistula creation. FAMILY HISTORY: Positive for hypertension and diabetes. SOCIAL HISTORY: Denies history of smoking, alcohol use, or illicit drug use. She has a good family support. ALLERGIES: PENICILLIN. CURRENT MEDICATIONS: Reviewed as per electronic medical record. REVIEW OF SYSTEMS: A 14-point review of systems negative except as mentioned per history of presenting illness. PHYSICAL EXAMINATION: VITAL SIGNS: Reviewed and as per electronic medical record. HEENT: PERRLA. Extraocular movements intact. Head is atraumatic and normocephalic. NECK: Supple. CVS: S1, S2 audible. RESPIRATORY: Decreased bilateral air entry. ABDOMEN: Soft, positive bowel sounds. EXTREMITIES: Negative cyanosis. NEURO: The patient is alert and awake. LABORATORY DATA: Reviewed as per electronic medical record. ASSESSMENT AND PLAN: Ms. Gallegos is a very pleasant 64-year-old female with multiple medical problems including history of hypertension, diabetes mellitus, hyperlipidemia, and end-stage renal disease on hemodialysis, admitted through emergency department due to shortness of breath. She underwent workup revealing pulmonary edema and volume overload as well as pleural effusion. She has been urgently hemodialysis and presently on dialysis. She is going to have thoracocentesis tomorrow. Hematology-Oncology has been consulted due to unexplained lymphadenopathy in the mediastinal, supraclavicular, and axillary region on CT scan. She also has anemia. I have reviewed the records and discussed at length with the patient about her condition and importance of further workup. At this point, lymphadenopathy is diffuse and not significantly enlarged though need further workup in the outpatient setting, most likely PET-CT scan. A PET-CT scan lights up or at least take off one of the major lymph node that can be biopsied. Other option is to have a followup scan in couple of months if lymphadenopathy get workup otherwise monitor. This has been discussed at length with the patient. She is going to have thoracocentesis tomorrow, so I would recommend sending a pleural fluid to cytology to further evaluation of any possible malignancy though it slightly. The patient also has anemia for which I will get baseline workup and closely monitor. Thank you for the consult. I will continue to be available. Please call with questions. MD DEVIN David/LIZETH /[id number]
--- NOTE | 2019-07-24 18:54 | NUR ---
Pulmonary Medicine Date: 07/24/2019 SUBJECTIVE: yesterday CXR with worse edema had late HD thoracentesis today, 500 cc out of right CXR with excellent improvement REVIEW OF SYSTEMS: no headaches, no rash PHYSICAL EXAMINATION: VITAL SIGNS: vital signs noted and reviewed per the chart record. GENERAL: Calm, NAD HEENT: Normocephalic and atraumatic. NECK: Supple. Throat midline. LUNGS: Bilateral air entry, decreased breath sounds at bases, limited but clear CARDIOVASCULAR: S1 and S2. No murmurs, rubs, or gallops. ABDOMEN: Soft and nontender. EXTREMITIES: No clubbing. No cyanosis. no edema. INTEGUMENT: No rash or purpura. LABORATORY DATA: k 3.7. 8 wbc, IMPRESSION AND PLAN: 1. Acute respiratory failure, BiPAP salvage / bipap off. 2. Pulmonary edema. 3. Pleural effusions, right greater than left. 4. End-stage renal disease, on hemodialysis. 5. Abnormal pancreatic radiography, cystic nonspecific lesions. 6. Pulmonary hypertension, likely venous line. 7. Hypertension. 8. Diabetes. 9. Hyperlipidemia. Dialysis intermittent per renal Appreciate nephrology evaluation wean oxygen as feasible thoracentesis today follow fluid analysis gi evaluation of the pancreatic nodules Reasonable to hold off antibiotics given likelihood of sepsis seems low Bronchodilators p.r.n. Thank you very much, Dr. Chand, for this consult. Please call for questions
[2019-07-24] MEDS: CEFEPIME 1GM/NS 0.9% 50 ML 50 ML IV SCH (19:33)
[2019-07-24] MEDS: ATORVASTATIN 20 MG TAB PO SCH (20:42)
--- NOTE | 2019-07-24 20:52 | NUR ---
Patient has been weening off oxygen throughout today in preparation for discharge home. Oxygen via nasal cannula running at 0.5 liters. Patient is now on room air with saturation between 92-95%. Will continue to monitor.
[2019-07-25 04:21] VITALS: BP 165/69
[2019-07-25 05:22] LABS: BASOPHILS # (AUTO) 0.1 (0.0-0.1); BASOPHILS % 0.7 % (0.0-1.0); EOSINOPHILS # (AUTO) 0.2 (0.0-0.4); EOSINOPHILS % 2.6 % (0.0-6.0); HEMATOCRIT 34.6 % (34.2-44.1); HEMOGLOBIN 10.9 g/dL (12.0-16.0); LYMPHOCYTES # (AUTO) 0.9 (1.0-3.2); LYMPHOCYTES % 10.3 % (18.0-39.1); MEAN CORPUSCULAR HEMOGLOBIN 28.8 pg (28-32); MEAN CORPUSCULAR HGB CONC 31.5 g/dL (31-35); MEAN CORPUSCULAR VOLUME 91.3 fL (81-99); MONOCYTES # (AUTO) 0.9 (0.2-0.8); MONOCYTES % 10.1 % (4.4-11.3); NEUTROPHILS # (AUTO) 6.7 (2.1-6.9); NEUTROPHILS % 76.1 % (38.7-80.0); PLATELET COUNT 143 x10e3/uL (140-360); RED BLOOD COUNT 3.79 x10e6/uL (3.6-5.1)
[2019-07-25 05:54] LABS: ANION GAP 16.9 mmol/L (8-16); CALCIUM 9.4 mg/dL (8.4-10.2); CREATININE, SERUM 5.89 mg/dL (0.57-1.11); POTASSIUM 3.9 mmol/L (3.5-5.1)
[2019-07-25] MEDS: INSULIN LISPRO 100 UNIT/1 ML 3ML VIAL SQ SCH ×3 (07:17→16:27)
[2019-07-25 07:31] VITALS: BP 165/66
[2019-07-25 07:32] VITALS: BP 165/66
[2019-07-25] MEDS: CARVEDILOL 12.5 MG TAB PO SCH ×3 (08:15→16:29)
[2019-07-25] MEDS: NIFEDIPINE CR 30 MG TAB PO SCH ×2 (08:16→12:19)
--- NOTE | 2019-07-25 08:16 | NUR ---
pt starting dialysis
--- NOTE | 2019-07-25 09:30 | NUR ---
pt declining meds until dialysis complete.
[2019-07-25 11:29] VITALS: BP 150/72
[2019-07-25] MEDS: ASPIRIN 81 MG ENTERIC COATED PO SCH (12:19)
[2019-07-25] MEDS: FOLIC ACID/CYANOCOB/PYRIDOXINE TAB PO SCH (12:19)
[2019-07-25] MEDS: CLOPIDOGREL BISULFATE 75 MG TAB PO SCH (12:19)
[2019-07-25] MEDS: HEPARIN SOD (PORCINE) 5,000 UNIT/ML VIAL SC SCH (12:20)
[2019-07-25] MEDS ORDERED: LACTULOSE SYRUP 20 GM/30 ML UDC PO NR (12:30)
--- NOTE | 2019-07-25 13:03 | NUR ---
Pulmonary Medicine Date: 07/25/2019 SUBJECTIVE: eating well walked, no dizziness 2 L/min oxygen REVIEW OF SYSTEMS: no headaches, no rash PHYSICAL EXAMINATION: VITAL SIGNS: vital signs noted and reviewed per the chart record. GENERAL: Calm, NAD HEENT: Normocephalic and atraumatic. NECK: Supple. Throat midline. LUNGS: Bilateral air entry, decreased breath sounds at bases, limited but clear CARDIOVASCULAR: S1 and S2. No murmurs, rubs, or gallops. ABDOMEN: Soft and nontender. EXTREMITIES: No clubbing. No cyanosis. no edema. INTEGUMENT: No rash or purpura. LABORATORY DATA: k 3.9, hco3 25,k bun 35, cr 5.9 IMPRESSION AND PLAN: 1. Acute respiratory failure, BiPAP salvage / bipap off. 2. Pulmonary edema. 3. Pleural effusions, right greater than left. 4. End-stage renal disease, on hemodialysis. 5. Abnormal pancreatic radiography, cystic nonspecific lesions. 6. Pulmonary hypertension, likely venous line. 7. Hypertension. 8. Diabetes. 9. Hyperlipidemia. Dialysis intermittent per renal wean oxygen as feasible thoracentesis done, follow up fluid analysis if recoverable gi evaluation of the pancreatic nodules Reasonable to hold off antibiotics given likelihood of sepsis seems low Bronchodilators p.r.n. Thank you very much, Dr. Chand, for this consult. Please call for questions
--- NOTE | 2019-07-25 14:46 | NUR ---
pt had 500ml removed via thoracentesis yesterday, and 2 liter via dialysis today. MD has rounded. daily weight recorded. pt ok to dc this evening if pending cultures negative @48hrs. pt and family aware
[2019-07-25 16:25] VITALS: BP 115/57
--- NOTE | 2019-07-25 17:54 | NUR ---
Discharged instructions given to patient and family members, verbalized and understand. Discharged assessment completed. V/S WNL. Denied pain and no SOB. Respiration even and unlabored. Patient assisted to D/C from unit @1744 by wheelchair infront of lobby. Patient went home with his family by car.
--- NOTE | 2019-07-25 18:47 | Discharge Summary ---
FINAL DISCHARGE DIAGNOSES: 1. Respiratory distress secondary to pulmonary edema from volume overload requiring hemodialysis with increased ultrafiltration. 2. Concern for congestive heart failure-needs Outpatient Cardiology workup. 3. End-stage renal disease, on hemodialysis with volume overload. 4. Hypertension. 5. Type 2 diabetes. 6. Lymphadenopathy-follow up with Hematology as an outpatient. 7. Pancreatic cyst-follow up with GI and Hematology as an outpatient for PET-CT scan as well as MRCP. CONSULTANTS: GI, Hematology, Nephrology and Cardiology. PHYSICAL EXAMINATION: VITAL SIGNS: Temperature is 97.8, pulse 82, respiratory rate is 18, blood pressure 150/72, pulse ox 99% on room air. LABORATORY FINDINGS: Show white count was 8.8, hemoglobin 10.9, hematocrit 35, platelets of 143. Coagulation PT 15, INR 1.1, PTT 35. Chemistry; sodium 138, potassium 3.9, chloride 100, bicarb 25, anion gap of 16, BUN is 35, creatinine is 5.8, glucose is 112, hemoglobin A1c is 5.1, calcium 9.4. LFTs within normal range. Albumin 3.5, LDL is 45, TSH is 1.8. Body fluids, all cancelled. MICROBIOLOGY: Blood cultures were negative greater than 48 hours x2. IMAGING STUDIES: CT abdomen and pelvis showed cardiomegaly with severe pulmonary edema, moderate right pleural effusion with small left pleural effusion. Numerous prominent subcentimeter supraclavicular mediastinal axillary lymph nodes, do not meet size criteria for lymphadenopathy, may be reactive. Subcentimeter cystic lesions in the pancreas noted and side-branch of intraductal papillary mucinous neoplasms. Nonobstructing 3 mm right mid pole renal calculus. No hydronephrosis. Diffuse atherosclerotic calcifications including coronary arteries. CT chest same as CT abdomen and pelvis. Chest x-ray shows CHF with bibasilar atelectasis and effusion slightly worse compared to the prior examination. Thoracentesis performed, removed 500 mL of serous fluid. Chest x-ray, no pneumothorax, status post right thoracentesis. Resolution of bilateral pleural effusion. No focal pneumonia or pulmonary edema. HOSPITAL COURSE: This is a 64-year-old female, history of ESRD on dialysis, comes in with complaints of shortness of breath and respiratory distress requiring BiPAP and pulmonary consultation. The patient needed an increases of ultrafiltration, which Nephrology was consulted. The patient is a dialysis patient. Apparently, her dry weight was not adjusted at the dialysis unit. While here, she had several treatments of dialysis with increased ultrafiltration. The patient was then eventually weaned off BiPAP and back to normal room air prior to being discharged. She did undergo thoracentesis, 500 mL was removed. There were no microbiology in relation to the thoracentesis. As per Pulmonary and Nephrology, no further workup was needed. Hematology was consulted due to concern for pancreatic cyst as well as lymphadenopathy. I also consulted with GI as well. As per Hematology, he recommends outpatient PET-CT scan, which will help with the pancreatic cyst as well as the lymph node lymphadenopathy. If there are any abnormalities, it will pick pack worker the entire bodies what he reports to me. As per GI, he recommends outpatient MRCP in his office. It was very vital when I spoke with them to follow up with both GI and Hematology/Oncology. I spoke with the patient as well as the patient's daughters, who were at bedside to please follow up with the GI specialist and environmental protection economist for further imaging and management. At this time, they were okay above all consultants for discharge the patient to home, but very vital to follow up very closely which the family and the patient verbalized understanding to follow up within the next 1 to 2 weeks. As per Cardiology, her BNP was found to be elevated and it feels that the patient likely has some underlying CHF. As per Cardiology, they were started on cardioprotective medications as well as Plavix and they were advised to follow up in their office for outpatient cardiac stress testing and further management and care. At this time, the patient has been cleared by all consultants for discharge to home. She was doing well with no other complaints. She was afebrile. There was no evidence of any infection. At some point in the hospital, she did have a low-grade temperature that there was some concern, but her cultures were all negative, but there was no evidence of any fever throughout the whole entire hospital course. She was on antibiotics briefly, but all her cultures were negative and all her imaging were found to be negative. There was no source or any obvious source of infection. On the day of discharge, the patient was cleared for discharge by all consultants. On the day of discharge, vital signs were stable, labs reviewed and stable. The patient was seen and evaluated, examined thoroughly on the day of discharge. No other complaints. The patient verbalized understanding and agrees to plan of care to follow up accordingly as an outpatient with primary care physician in 1 week and the rest of the consult as described above in the next 2 weeks' time. Very vital followup with Hematology and GI as an outpatient in the next two weeks for further management and care, which I discussed this with the patient and the family at bedside. MEDICATIONS: See med reconciliation form. DISPOSITION: To home. CONDITION: Stable. DIET: Heart healthy. In the event of any worsening symptoms, the patient was advised to come back to the ED for further evaluation. Discharge summary took greater than 35 minutes. MD PRATIK Madden/LIZETH /[id number]
--- NOTE | 2019-07-26 01:34 | Progress Note ---
DATE: 07/25/2019 CHIEF COMPLAINT: The patient with end-stage renal disease on hemodialysis, admitted due to volume overload. She was noted to have lymphadenopathy. Subsequently, Hematology-Oncology has been consulted. OBJECTIVE: VITAL SIGNS: Reviewed as per electronic medical record. HEENT: Head is atraumatic and normocephalic. NECK: Supple. CVS: S1 and S2 audible. RESPIRATORY: Decreased bilateral air entry. ABDOMEN: Soft. Positive bowel sounds. EXTREMITIES: Negative edema. NEURO: The patient is alert and awake. LABORATORY DATA: Reviewed as per electronic medical record. ASSESSMENT AND PLAN: Ms. Gallegos is a very pleasant 64-year-old female with multiple medical problems including known history of hypertension, known diabetes mellitus, hyperlipidemia, and end-stage renal disease on hemodialysis, admitted due to volume overload. She underwent a CT scan revealing mediastinal, supraclavicular, axillary lymphadenopathy of uncertain etiology. She has been recommended to follow up in outpatient setting and to have a PET-CT scan. She also has anemia, which needs to be closely monitored if she goes for followup in the outpatient setting. MD DEVIN David/MODL /[id number]
== END 2019-07-25 17:44 | disposition home or self-care (01) | DRG 291 ==
LOC: ER 09:28 → ERHOLD 13:13 → IMCU 20:51
PROVIDERS: ADMIT Internal Medicine; ATTEND Internal Medicine
PROC: 5A1D70Z Performance of Urinary Filtration, Intermittent, Less than 6 Hours Per Day (ICD-10-PCS; principal; 2019-07-22)
PROC: 5A1D70Z Performance of Urinary Filtration, Intermittent, Less than 6 Hours Per Day (ICD-10-PCS; 2019-07-23)
PROC: 0W993ZX Drainage of Right Pleural Cavity, Percutaneous Approach, Diagnostic (ICD-10-PCS; 2019-07-24)
PROC: 5A1D70Z Performance of Urinary Filtration, Intermittent, Less than 6 Hours Per Day (ICD-10-PCS; 2019-07-25)
DX: I13.2 Hypertensive heart and chronic kidney disease with heart failure and with stage 5 chronic kidney disease, or end stage renal disease (principal); J96.00 Acute respiratory failure, unspecified whether with hypoxia or hypercapnia; N18.6 End stage renal disease; I50.21 Acute systolic (congestive) heart failure; K86.2 Cyst of pancreas; E87.70 Fluid overload, unspecified; E11.22 Type 2 diabetes mellitus with diabetic chronic kidney disease; Z99.2 Dependence on renal dialysis; R59.1 Generalized enlarged lymph nodes; Z83.3 Family history of diabetes mellitus; Z82.49 Family history of ischemic heart disease and other diseases of the circulatory system; E78.5 Hyperlipidemia, unspecified; I25.10 Atherosclerotic heart disease of native coronary artery without angina pectoris; Z79.4 Long term (current) use of insulin
CPT/HCPCS: 32555; 36415; 71045; 71250; 74176; 74470; 80048; 80053; 80061; 82948; 83036; 83690; 83880; 84443; 85025; 85610; 85730; 86705; 86706; 87040; 87340; 90962; 93005; 93306; 94660; 97139; 99284; J0360; J0692; J1644; J2405; J3370; J7030; J7040; J7050; Q0162

== ENCOUNTER 2021-01-05 17:16 | Emergency (ER) | payer MEDICARE ==
[~2021-01-05] VITALS: Ht 152.4 cm; Wt 47.6 kg
[2021-01-05] MEDS ORDERED: AZITHROMYCIN 500MG/NS 250 ML 250 ML IV ONE (17:45)
[2021-01-05] MEDS ORDERED: DEXAMETHASONE SOD PHOS 10 MG/1 ML VIAL IV ONE (17:45)
[2021-01-05] MEDS ORDERED: CEFTRIAXONE SOD 1 GM/50 ML BAG IV ONE (17:45)
[2021-01-05] MEDS ORDERED: ACETAMINOPHEN 325 MG TAB PO ONE (17:45)
[2021-01-05 17:56] LABS: BASOPHILS % 0.5 % (0.0-1.0); HEMATOCRIT 33.8 % (34.2-44.1); HEMOGLOBIN 11.1 g/dL (12.0-16.0); LYMPHOCYTES # (AUTO) 0.5 (1.0-3.2); LYMPHOCYTES % 5.7 % (18.0-39.1); MEAN CORPUSCULAR HEMOGLOBIN 29.4 pg (28-32); MEAN CORPUSCULAR HGB CONC 32.8 g/dL (31-35); MEAN CORPUSCULAR VOLUME 89.7 fL (81-99); MONOCYTES # (AUTO) 0.6 (0.2-0.8); NEUTROPHILS # (AUTO) 7.2 (2.1-6.9); NEUTROPHILS % 86.4 % (38.7-80.0); PLATELET COUNT 226 x10e3/uL (140-360); RED BLOOD COUNT 3.77 x10e6/uL (3.6-5.1); RED CELL DISTRIBUTION WIDTH 15.9 % (11.7-14.4)
[2021-01-05] MEDS ORDERED: CEFTRIAXONE SOD 1 GM in SODIUM CHLORIDE 0.9% 50ML 50 ML IV ONE (18:00)
[2021-01-05 18:14] LABS: ALBUMIN/GLOBULIN RATIO 0.9 (0.8-2.0); ANION GAP 24.1 mmol/L (8-16); CALCIUM 9.1 mg/dL (8.4-10.2); CREATININE, SERUM 5.25 mg/dL (0.57-1.11); POTASSIUM 4.1 mmol/L (3.5-5.1)
[2021-01-05 18:22] LABS: CREATINE KINASE MB 0.5 ng/mL (0-5.0)
[2021-01-05] MEDS ORDERED: IBUPROFEN 600 MG TAB PO STA (20:21)
[2021-01-06 04:34] LABS: ABG HCO3 30 mmol/L (22-26); ABG PCO2 40 mmHg (35-45); ABG PH 7.49 (7.35-7.45); ABG PO2 97 mmHg (80-105); ABG TCO2 31
== END 2021-01-06 02:17 | disposition other institution (70) ==
LOC: ER 17:41
DX: U07.1 COVID-19 (principal); J18.9 Pneumonia, unspecified organism; R06.03 Acute respiratory distress; R09.02 Hypoxemia; Z99.81 Dependence on supplemental oxygen; I12.0 Hypertensive chronic kidney disease with stage 5 chronic kidney disease or end stage renal disease; E11.22 Type 2 diabetes mellitus with diabetic chronic kidney disease; N18.6 End stage renal disease
CPT/HCPCS: 36415; 36600; 71045; 80053; 82550; 82553; 82805; 82948; 83605; 83880; 84484; 85025; 87040; 93005; 99285; J0456; J0696; J1100; U0002